=== PATIENT | male | born 1970 | race Caucasian/White ===

== ENCOUNTER 2019-03-02 08:44 | Inpatient (IN) | payer OTHER ==
[2019-03-02] MEDS: ONDANSETRON 4 MG INJ IV ×2 (09:05→10:43)
[2019-03-02] MEDS: HYDROmorphONE 2 MG/ML SYG IV (09:05)
[2019-03-02] MEDS: SOD CHLORIDE 0.9% 1,000 ML IV ×2 (09:20→10:43)
[2019-03-02 09:21] LABS: ADD MAN DIFF? NO
[2019-03-02 09:23] LABS: WHITE BLOOD COUNT 10.1 10^3/ul (4.8-10.8)
[2019-03-02 09:23] LABS: BASOPHILS % 0.4 % (0.0-2.0); EOSINOPHILS % 0.3 % (0.0-7.0); HEMATOCRIT 41.1 % (42.0-52.0); HEMOGLOBIN 13.5 g/dl (14.0-18.0); LYMPHOCYTES # 2.4 10^3/ul (0.8-2.9); LYMPHOCYTES % 23.3 % (15.0-51.0); MEAN CORPUSCULAR HEMOGLOBIN 30.7 pg (29.0-33.0); MEAN CORPUSCULAR HGB CONC 32.8 g/dl (32.0-37.0); MEAN CORPUSCULAR VOLUME 93.4 fl (82.0-101.0); MEAN PLATELET VOLUME 10.8 fl (7.4-10.4); MONOCYTE # 0.4 10^3/ul (0.3-0.9); MONOCYTES % 3.9 % (0.0-11.0); NEUTROPHIL # 7.2 10^3/ul (1.6-7.5); NEUTROPHILS % 70.8 % (39.0-77.0); PLATELET COUNT 283 10^3/UL (140-415)
[2019-03-02 09:49] LABS: INR 0.85; PROTIME 11.7 Sec (11.9-14.9); PT RATIO 0.9
[2019-03-02 09:51] LABS: PARTIAL THROMBOPLASTIN TIME 24.7 Sec (23.0-35.0)
[2019-03-02 09:53] LABS: ALANINE AMINOTRANSFERASE 28 IU/L (13-69); ALBUMIN 4.4 g/dl (3.3-4.9); ALBUMIN/GLOBULIN RATIO 1.33; ALKALINE PHOSPHATASE 66 IU/L (42-121); AMYLASE 121 U/L (11-123); ANION GAP 9 (5-13); ASPARTATE AMINO TRANSFERASE 48 IU/L (15-46); BILIRUBIN,INDIRECT 0.4 mg/dl (0-1.1); BILIRUBIN,TOTAL 0.4 mg/dl (0.2-1.3); BLOOD UREA NITROGEN 18 mg/dl (7-20); CALCIUM 9.8 mg/dl (8.4-10.2); CARBON DIOXIDE 25 mmol/L (21-31); CHLORIDE 110 mmol/L (97-110); CREATINE KINASE 207 IU/L (23-200); CREATININE 0.98 mg/dl (0.61-1.24); Estimated GFR > 60 mL/min (>60); GLUCOSE 158 mg/dl (70-220); LIPASE 376 U/L (23-300); POTASSIUM 4.1 mmol/L (3.5-5.1); SODIUM 144 mmol/L (135-144); TOTAL PROTEIN 7.7 g/dl (6.1-8.1)
[2019-03-02] MEDS: SOD CHLORIDE 0.9% 100 ML (09:53)
[2019-03-02] MEDS: IODIXANOL LOCM 100 ML BTL (09:54)
[2019-03-02 10:04] LABS: CK-MB 2.14 ng/ml (0.0-2.4); TROPONIN-I < 0.012 ng/ml (0.000-0.120)
[2019-03-02] MEDS: HYDROmorphONE 1 MG/ML SYG IV (10:43)
[2019-03-02] MEDS ORDERED: ONDANSETRON 4 MG INJ IV (12:00)
[2019-03-02] MEDS: METOCLOPRAMIDE 10 MG INJ IV (12:00)
[2019-03-02] MEDS ORDERED: ACETAMINOPHEN 325 MG TAB PO ×2 (12:00→13:00)
[2019-03-02] MEDS: FAMOTIDINE 20 MG INJ IV (12:00)
[2019-03-02 12:04] LABS: ADD UMIC YES; UR ASCORBIC ACID NEGATIVE (NEGATIVE); UR BILIRUBIN (Dip) NEGATIVE (NEGATIVE); UR BLOOD (Dip) 2+ mg/dL (NEGATIVE); UR CLARITY CLEAR (CLEAR); UR COLOR YELLOW (YELLOW); UR GLUCOSE (Dip) NEGATIVE (NEGATIVE); UR KETONES (Dip) NEGATIVE (NEGATIVE); UR LEUKOCYTE ESTERASE (Dip) NEGATIVE Leu/ul (NEGATIVE); UR NITRITE (Dip) NEGATIVE (NEGATIVE); UR RBC 2 /HPF (0-5); UR TOTAL PROTEIN (Dip) NEGATIVE (NEGATIVE); UR UROBILINOGEN (Dip) NEGATIVE (NEGATIVE); UR WBC 2 /HPF (0-5)
[2019-03-02] MEDS ORDERED: NITROGLYCERIN (SL) 0.4 MG TAB SL (13:00)
[2019-03-02] MEDS ORDERED: ALBUTEROL/IPRATROPIUM (NEB) 3 ML AMP HHN (13:00)
[2019-03-02] MEDS ORDERED: MAGNESIUM HYDROXIDE 30ML CUP PO (13:00)
[2019-03-02] MEDS ORDERED: LORAZEPAM 2 MG INJ IV (13:00)
[2019-03-02] MEDS ORDERED: NACL 0.9% 3 ML SYG IV (13:00)
[2019-03-02] MEDS ORDERED: hydrALAzine 20 MG INJ IV (13:00)
[2019-03-02] MEDS ORDERED: DOCUSATE SODIUM 100 MG CAP PO (13:00)
[2019-03-02] MEDS ORDERED: HYDROCODONE/APAP (5/325) TAB PO (13:00)
[2019-03-02 14:40] LABS: FREE T4 (FREE THYROXINE) 1.08 ng/dl (0.64-1.79)
[2019-03-02] MEDS: SOD CHLORIDE 0.45% 1,000 ML IV (15:43)
[2019-03-02] MEDS: morphine 2 MG INJ IV (18:29)
[2019-03-02 18:47] LABS: INR 0.93; PROTIME 12.6 Sec (11.9-14.9)
[2019-03-02 18:48] LABS: PARTIAL THROMBOPLASTIN TIME 25.3 Sec (23.0-35.0)
[2019-03-03] MEDS: SOD CHLORIDE 0.45% 1,000 ML IV ×2 (03:53→15:31)
[2019-03-03] MEDS: FAMOTIDINE 20 MG INJ IV ×2 (03:53→08:01)
[2019-03-03 05:28] LABS: ADD MAN DIFF? NO
[2019-03-03 05:36] LABS: BASOPHILS % 0.3 % (0.0-2.0); EOSINOPHILS % 0.3 % (0.0-7.0); HEMATOCRIT 35.5 % (42.0-52.0); HEMOGLOBIN 11.6 g/dl (14.0-18.0); LYMPHOCYTES # 1.7 10^3/ul (0.8-2.9); LYMPHOCYTES % 19.4 % (15.0-51.0); MEAN CORPUSCULAR HEMOGLOBIN 30.3 pg (29.0-33.0); MEAN CORPUSCULAR HGB CONC 32.7 g/dl (32.0-37.0); MEAN CORPUSCULAR VOLUME 92.7 fl (82.0-101.0); MEAN PLATELET VOLUME 10.6 fl (7.4-10.4); MONOCYTE # 0.7 10^3/ul (0.3-0.9); MONOCYTES % 8.4 % (0.0-11.0); NEUTROPHIL # 6.3 10^3/ul (1.6-7.5); NEUTROPHILS % 71.3 % (39.0-77.0); PLATELET COUNT 225 10^3/UL (140-415); RED BLOOD COUNT 3.83 10^6/ul (4.70-6.10); RED CELL DISTRIBUTION WIDTH 12.2 % (11.5-14.5)
[2019-03-03 05:36] LABS: WHITE BLOOD COUNT 8.8 10^3/ul (4.8-10.8)
[2019-03-03 06:19] LABS: ANION GAP 6 (5-13); BLOOD UREA NITROGEN 11 mg/dl (7-20); CALCIUM 8.6 mg/dl (8.4-10.2); CARBON DIOXIDE 26 mmol/L (21-31); CHLORIDE 108 mmol/L (97-110); CREATININE 0.78 mg/dl (0.61-1.24); Estimated GFR > 60 mL/min (>60); GLUCOSE 107 mg/dl (70-220); PHOSPHORUS 3.4 mg/dl (2.5-4.9); POTASSIUM 3.8 mmol/L (3.5-5.1); SODIUM 140 mmol/L (135-144)
[2019-03-03 06:25] LABS: CHOL/HDL RATIO 3.4 RATIO; HDL CHOLESTEROL 44 mg/dl (28-71); LDL CHOLESTEROL,CALCULATED 94 mg/dl; TRIGLYCERIDES 70 mg/dl (0-149)
[2019-03-03 06:25] LABS: CHOLESTEROL 152 mg/dl (100-200)
[2019-03-03 06:41] LABS: THYROID STIMULATING HORMONE 0.465 MIU/L (0.465-4.680)
[2019-03-03 06:53] LABS: HEMOGLOBIN A1C 5.6 % (0-5.9)
[2019-03-03] MEDS ORDERED: HYDROmorphONE 2 MG TAB PO (10:00)
[2019-03-03] MEDS: BACLOFEN 10 MG TAB PO ×3 (11:10→21:18)
[2019-03-03] MEDS: ONDANSETRON 4 MG INJ IV (20:33)
[2019-03-03] MEDS: FAMOTIDINE 20 MG TAB PO (21:18)
[2019-03-03] MEDS: HYDROCODONE/APAP (5/325) TAB PO (21:18)
[2019-03-04] MEDS: SOD CHLORIDE 0.45% 1,000 ML IV ×2 (04:43→17:33)
[2019-03-04 06:23] LABS: ADD MAN DIFF? NO
[2019-03-04 06:32] LABS: BASOPHILS % 0.3 % (0.0-2.0); EOSINOPHILS # 0.1 10^3/ul (0.0-0.5); EOSINOPHILS % 0.7 % (0.0-7.0); HEMATOCRIT 35.8 % (42.0-52.0); HEMOGLOBIN 11.8 g/dl (14.0-18.0); LYMPHOCYTES # 1.8 10^3/ul (0.8-2.9); MEAN CORPUSCULAR HEMOGLOBIN 30.8 pg (29.0-33.0); MEAN CORPUSCULAR VOLUME 93.5 fl (82.0-101.0); MONOCYTE # 0.5 10^3/ul (0.3-0.9); MONOCYTES % 7.1 % (0.0-11.0); NEUTROPHIL # 4.6 10^3/ul (1.6-7.5); NEUTROPHILS % 65.6 % (39.0-77.0); PLATELET COUNT 237 10^3/UL (140-415); RED BLOOD COUNT 3.83 10^6/ul (4.70-6.10)
[2019-03-04 07:04] LABS: ANION GAP 9 (5-13); BLOOD UREA NITROGEN 10 mg/dl (7-20); CARBON DIOXIDE 25 mmol/L (21-31); CHLORIDE 107 mmol/L (97-110); Estimated GFR > 60 mL/min (>60); GLUCOSE 99 mg/dl (70-220); POTASSIUM 3.7 mmol/L (3.5-5.1); SODIUM 141 mmol/L (135-144)
[2019-03-04] MEDS: ONDANSETRON 4 MG INJ IV (08:21)
[2019-03-04] MEDS: BACLOFEN 10 MG TAB PO ×2 (09:12→13:14)
[2019-03-04] MEDS: FAMOTIDINE 20 MG TAB PO (09:12)
== END 2019-03-04 18:38 | disposition home health service (06) | DRG 552 ==
LOC: E/R 08:44 → 6WM 11:46
DX: S32.019A Unspecified fracture of first lumbar vertebra, initial encounter for closed fracture (principal); S06.0X1A Concussion with loss of consciousness of 30 minutes or less, initial encounter; S32.029A Unspecified fracture of second lumbar vertebra, initial encounter for closed fracture; S32.039A Unspecified fracture of third lumbar vertebra, initial encounter for closed fracture; S32.049A Unspecified fracture of fourth lumbar vertebra, initial encounter for closed fracture; W11.XXXA Fall on and from ladder, initial encounter; K21.9 Gastro-esophageal reflux disease without esophagitis
CPT/HCPCS: 70450; 71045; 71260; 72125; 72148; 73510; 74177; 80048; 80053; 80061; 81001; 82150; 82550; 82553; 83036; 83690; 83735; 84100; 84439; 84443; 84484; 85025; 85610; 85730; 92610; 93005; 96374; 96375; 96376; 97161; 97167; 99285-25

== ENCOUNTER 2019-03-13 21:40 | Emergency (ER) | payer OTHER | END 2019-03-14 03:18 | disposition home or self-care (01) | LOC: FTE 21:40 | DX: S29.011A Strain of muscle and tendon of front wall of thorax, initial encounter (principal); R07.89 Other chest pain; X50.9XXA Other and unspecified overexertion or strenuous movements or postures, initial encounter; Y92.9 Unspecified place or not applicable | CPT/HCPCS: 71045; 71100; 93005; 99284-25 ==